=== PATIENT | female | born 1975 | race Two or more races ===

== ENCOUNTER 2025-08-20 12:35 | Emergency (ER) | payer MEDICAID, OTHER ==
[~2025-08-20] VITALS: Ht 165.1 cm; Wt 95.0 kg
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
[2025-08-20 15:16] VITALS: BP 153/90; PULSE 89; RESP 17; TEMP 98.2
[2025-08-20 15:20] VITALS: O2SAT 98
[2025-08-20] MEDS: HYDROcodone-ACET 5/325MG TAB PO ONE (15:20)
--- NOTE | 2025-08-24 14:11 | ECG ---
[facility] Test Date: 2025-08-20 Test Time: 12:43:23 Pat Name: SANTIAGO SALAS Department: ED Room: Gender: F [employer] Systems Engineer: : 1975 Requested By: AMELIA FOLEY Order Number: [id number] Reading MD: Dangelo Rodriguez Measurements Intervals [place] Rate: 101 P: 48 TN: 122 QRS: 67 QRSD: 84 T: 87 QT: 341 QTc: 442 Interpretive Statements Sinus tachycardia Low voltage, precordial leads Minimal ST depression, inferior leads Electronically Signed On 08-27-2025 8:21:58 PST by Dangelo Rodriguez Please click the below link to view image of tracing.
== END 2025-08-20 15:15 | disposition home or self-care (01) ==
LOC: EDBD 12:35 → ER 12:35
DX: T14.8XXA Other injury of unspecified body region, initial encounter (principal); R42 Dizziness and giddiness; I10 Essential (primary) hypertension; Z79.899 Other long term (current) drug therapy; V89.2XXA Person injured in unspecified motor-vehicle accident, traffic, initial encounter; Y93.89 Activity, other specified; Y92.410 Unspecified street and highway as the place of occurrence of the external cause; Y99.8 Other external cause status
CPT/HCPCS: 70450; 71045; 72040; 72100; 93005